=== PATIENT | female | born 1995 | race Caucasian/White ===

== ENCOUNTER 2023-09-01 22:29 | Outpatient (CLI) | payer OTHER | END 2023-09-01 23:59 | disposition critical access hospital (66) | LOC: EMS 22:29 | DX: R07.89 Other chest pain (principal); S30.811A Abrasion of abdominal wall, initial encounter; S20.319A Abrasion of unspecified front wall of thorax, initial encounter; S80.211A Abrasion, right knee, initial encounter; S70.211A Abrasion, right hip, initial encounter; V49.40XA Driver injured in collision with unspecified motor vehicles in traffic accident, initial encounter; Y92.413 State road as the place of occurrence of the external cause | CPT/HCPCS: A0425; A0429 ==

== ENCOUNTER 2023-09-01 22:39 | Emergency (ER) | payer OTHER ==
[2023-09-01 23:13] LABS: BASOPHILS % (AUTO) 0.2 %; EOSINOPHILS % (AUTO) 0.2 %; HCT - HEMATOCRIT 44.3 % (37.0-47.0); HGB - HEMOGLOBIN 14.6 g/dL (12.0-16.0); LYMPHOCYTES # (AUTO) 2.6 10^3/uL (1.5-3.5); LYMPHOCYTES % (AUTO) 15.6 %; MEAN CORPUSCULAR HEMOGLOBIN 29.7 pg (27.0-31.0); MEAN CORPUSCULAR VOLUME 90.2 fL (81.0-99.0); MEAN PLATELET VOLUME 10.6 fL (7.9-10.8); MONOCYTES # (AUTO) 1.1 10^3/uL (0.0-1.0); MONOCYTES % (AUTO) 6.8 %; NEUTROPHILS # (AUTO) 12.7 10^3/uL (1.5-6.6); NEUTROPHILS % (AUTO) 76.5 %; PLT - PLATELET COUNT 302 10^3/uL (130-450); RED BLOOD COUNT 4.91 10^6/uL (4.20-5.40); RED CELL DISTRIBUTION WIDTH 12.9 % (12.0-15.0); WHITE BLOOD COUNT 16.6 x10^3/uL (4.8-10.8)
[2023-09-01] MEDS: MORPHINE 2 MG/ML CARPUJECT IVP STA (23:16)
[2023-09-01] MEDS: ONDANSETRON 4 MG/2 ML VIAL IVP STA ×2 (23:17→23:52)
[2023-09-01] MEDS ORDERED: iohexoL-300 100 ML VIAL ONE (23:29)
[2023-09-01 23:34] LABS: ALBUMIN 4.5 g/dL (3.2-5.5); ALBUMIN/GLOBULIN RATIO 1.5 (1.0-2.2); BILIRUBIN,TOTAL 0.6 mg/dL (0.2-1.0); CALCIUM 9.7 mg/dL (8.5-10.3); CREATININE 0.8 mg/dL (0.6-1.3); POTASSIUM 3.6 mmol/L (3.5-4.5); TOTAL PROTEIN 7.5 g/dL (6.4-8.9)
[2023-09-01 23:35] LABS: HCG,QUALITATIVE BLOOD NEGATIVE; PARTIAL THROMBOPLASTIN TIME 23.9 secs (24.9-33.3)
[2023-09-01 23:40] LABS: INR 1.2 (0.8-1.2); PT - PROTHROMBIN TIME 13.1 secs (9.9-12.6)
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
[2023-09-02] MEDS: BACITRACIN ZINC OINT 1 PACKET TOP STA (00:30)
[2023-09-02] MEDS: SODIUM CHLORIDE 0.9% 1,000 ML IV STA (00:53)
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
[2023-09-02 02:06] VITALS: O2SAT 98
[2023-09-02] MEDS: iohexoL-300 100 ML VIAL IVP ONE (02:07)
[2023-09-02] MEDS: KETOROLAC 15 MG/ML VIAL IVP STA (02:17)
[2023-09-02] MEDS: METOCLOPRAMIDE 10 MG/2 ML VIAL IVP STA (02:17)
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
[2023-09-02 02:28] LABS: BILIRUBIN,URINE NEGATIVE (NEGATIVE); GLUCOSE, URINE (UA) NEGATIVE (NEGATIVE); KETONES,URINE (UA) 15 mg/dL (NEGATIVE); LEUKOCYTE ESTERASE, URINE NEGATIVE (NEGATIVE); NITRITE,URINE NEGATIVE (NEGATIVE); OCCULT BLOOD,URINE SMALL (NEGATIVE); PH,URINE 5.5 PH (5.0-7.5); PROTEIN,URINE NEGATIVE (NEGATIVE); UROBILINOGEN,URINE 0.2 (NORMAL) E.U./dL (NORMAL)
[2023-09-02 02:48] LABS: BACTERIA,URINE Rare /HPF (None Seen); CLARITY,URINE HAZY (CLEAR); RBC,URINE 0-5 /HPF (0-5); SQUAMOUS EPITHELIAL CELL,UR FEW Squamous (<= Few); WBC,URINE 0-3 /HPF (0-5)
[2023-09-02] MEDS: oxyCODONE/ACET 5/325 Prepack 4 PO STA (02:58)
[2023-09-02 03:55] VITALS: BP 116/86
== END 2023-09-02 03:48 | disposition home or self-care (01) ==
LOC: EDUNIT# → ED 22:39
DX: S22.20XA Unspecified fracture of sternum, initial encounter for closed fracture (principal); S92.355A Nondisplaced fracture of fifth metatarsal bone, left foot, initial encounter for closed fracture; S92.512A Displaced fracture of proximal phalanx of left lesser toe(s), initial encounter for closed fracture; T14.8XXA Other injury of unspecified body region, initial encounter; V89.2XXA Person injured in unspecified motor-vehicle accident, traffic, initial encounter; Y93.89 Activity, other specified; Y92.410 Unspecified street and highway as the place of occurrence of the external cause
CPT/HCPCS: 36415; 70450; 71045; 71260; 72125; 72170; 73110; 73564; 73630; 74177; 80053; 81001; 83690; 84484; 84703; 85025; 85610; 85730; 93005; 96374; 96375; 99285; A9270; J2765; Q9967; 87086

== ENCOUNTER 2023-09-04 13:15 | Outpatient (CLI) | payer OTHER ==
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
== END 2023-09-04 13:30 | disposition home or self-care (01) ==
LOC: DI.N 13:15
PROVIDERS: ATTEND Physician Assistant
DX: M79.671 Pain in right foot (principal)

== ENCOUNTER 2023-09-10 11:34 | Outpatient (CLI) | payer OTHER ==
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
== END 2023-09-10 11:35 | disposition home or self-care (01) ==
LOC: DI 11:34
PROVIDERS: ATTEND Orthopaedic Surgery
DX: S92.352A Displaced fracture of fifth metatarsal bone, left foot, initial encounter for closed fracture (principal)

== ENCOUNTER 2023-10-08 13:48 | Outpatient (CLI) | payer BC ==
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
== END 2023-10-08 13:49 | disposition home or self-care (01) ==
LOC: DI 13:48
PROVIDERS: ATTEND Orthopaedic Surgery
DX: S92.315A Nondisplaced fracture of first metatarsal bone, left foot, initial encounter for closed fracture (principal); S92.352D Displaced fracture of fifth metatarsal bone, left foot, subsequent encounter for fracture with routine healing

== ENCOUNTER 2023-10-30 15:16 | Outpatient (CLI) | payer OTHER ==
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
== END 2023-10-30 15:17 | disposition home or self-care (01) ==
LOC: DI 15:16
PROVIDERS: ATTEND Orthopaedic Surgery
DX: S92.352D Displaced fracture of fifth metatarsal bone, left foot, subsequent encounter for fracture with routine healing (principal)